=== PATIENT | male | born 2000 | race African-American/Black ===

== ENCOUNTER → 2025-06-05 | Emergency (ER) | payer SELFPAY ==
[~2025-06-05] VITALS: Ht 172.7 cm; Wt 75.0 kg
[2025-06-05 22:24] VITALS: BP 111/87; PULSE 63; O2SAT 100
--- NOTE | 2025-06-05 22:26 | Physician Documentation ---
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 He is unsure when his last tetanus was. He denies any other concerns. Medication Reconciliation Allergies: Uncoded Allergies: PENICILLIN (Allergy, Unknown, hives, 06/05/25) Review of Systems ROS As stated above in the HPI, otherwise all systems are reviewed and negative. Physical Exam Vital Signs: Temperature: 97.8, Heart Rate: 78, Respiratory Rate: 16, BP: 114/66, Pulse Oximetry: 98, Weight: 75.000 Oxygen Flow Rate: 0 Physical Exam General: Alert, no apparent distress. Neck: Full range of motion. Respiratory: Lungs clear, no respiratory distress. Chest: No accessory muscle use. Cardiovascular: Regular rate and rhythm, no murmurs. Gastrointestinal: Soft, nontender, nondistended. Bowels sounds present. Extremities: Normal range of motion, no deformity. Neurologic: Oriented x4. Psychiatric: Normal mood and affect. Skin: Normal color, warm and dry. No edema, no ecchymosis. 3 cm x 0.5 cm laceration exposing subcutaneous tissue left lower dacosta. Procedures Procedure Note Laceration repair to 3x0.5 cm laceration on anterior dacosta. This was accomplished your 1st obtaining informed consent. The skin was then anesthetized with a total of 2 mL of plain lidocaine 1%. The wound was thoroughly irrigated and explored, no foreign bodies found. Subcutaneous tissue was exposed. Wound was closed with five 4.0 Ethilon sutures to good effect. Patient tolerated well. Progress Results/Orders Results/Orders Orders - GEMA PEREZ NP Dressing Orders (06/05/25 22:22) Laceration/I&D Tray Set Up (06/05/25 22:22) Wound Care Orders (06/05/25 22:22) Completed Orders - GEMA PEREZ NP Lidocaine 1% W/Epi 1:200,000 (Xylocaine (06/05/25 22:25) Tetanus/Pertuss/Diph Acell/Pf (Boostrix (06/05/25 22:25) Medications Received in ER Medications (Trade) Dose Ordered Sig/Henrik Route PRN Reason Start Time Stop Time Status Last Admin Dose Admin (Boostrix vaccine syringe) 0.5 ml ONCE ONCE IMVAC 06/05/25 22:25 06/05/25 22:26 DC 06/05/25 22:32 0.5 ML Vital Signs 06/05/25 06/05/25 22:13 22:24 Temp 97.8 97.8 Pulse 78 63 Resp 16 19 B/P (MAP) 114/66 111/87 (95) Pulse Ox 98 100 O2 Flow Rate 0 0 Medical Decision Making Differential Dx:Considerations: Include: Abrasion, Avulsion, Contusion, Laceration, Fracture, Hematoma, Neurovascular injury, Retained foreign body Additional Comments Laceration successfully closed. Tetanus updated. Patient to return in 7-10 days or sooner if signs of infection develop. Departure Time of Disposition: 22:24 Impression: Primary Impression: Laceration Condition: Stable Discharge Instructions: Laceration Care, Adult, [id number] Additional Instructions: Your tetanus was updated. Keep the wound clean, dry, and covered. OK to shower daily and wash with soap and water but do not soak your wound: no swimming or tub baths until it's healed. See your primary care provider for removal of sutures in 7-10 days or return here if unable to get in with primary care. You should also return for signs of infection such as spreading redness, increasing pain, or any other concerns that you're getting worse. Referrals: NO PRIMARY CARE PROVIDER (PCP) Education Educated: Patient Educated regarding: diagnosis, treatment, prognosis, need for follow up Signature Scribe Signature: x Attestation: The note accurately reflects work and decisions made by me.Gema Bourne NP 06/05/25 22:25 GEMA PEREZ NP Jun 05, 2025 22:26
[2025-06-05] MEDS: TETanus/Pertussis (Acell)/Diphther VAC/PF (Tdap-Adult) 0.5ml syringe IMVAC ONE (22:32)
[2025-06-05] MEDS: LIDOcaine 1% W/epiNEPHrine 1:200,000 10ml vial IJ ONE (22:33)
[2025-06-05 22:41] VITALS: RESP 12
[2025-06-05 23:02] VITALS: TEMP 97.8
== END | disposition home or self-care (01) ==
LOC: ER 22:09
DX: S81.812A Laceration without foreign body, left lower leg, initial encounter (principal); X58.XXXA Exposure to other specified factors, initial encounter; Y93.89 Activity, other specified; Y92.89 Other specified places as the place of occurrence of the external cause; Y99.8 Other external cause status
CPT/HCPCS: 12002; 90471; 90715; 99283

== ENCOUNTER 2025-06-14 22:01 | Emergency (ER) | payer SELFPAY ==
[~2025-06-14] VITALS: Ht 172.7 cm; Wt 79.0 kg
[2025-06-14 22:41] VITALS: BP 112/53; PULSE 90; RESP 16; O2SAT 98
--- NOTE | 2025-06-14 23:30 | Physician Documentation ---
History of Present Illness ~ Chief Complaint: Suture Removal Stated Complaint: STITCH REMOVAL Time Seen by MD: 22:53 OK to notify your PCP?: Yes Source: patient, RN/ HPI Patient is seen today with complaints of needing sutures removed from left lower leg. Patient states sutures were placed about eight or nine days ago. Patient states it is healing well and has no other concern or complaint at this time. Tetanus Within 5 Years: No Medication Reconciliation Allergies: Uncoded Allergies: PENICILLIN (Allergy, Unknown, hives, 06/05/25) Review of Systems Constitutional: Denies: chills, fever, weakness Eyes: Denies: pain, blurred vision ENT: Denies: ear pain, nose pain, throat pain, mouth pain Respiratory: Denies: cough, shortness of breath Cardiovascular: Denies: chest pain, palpitations Gastrointestinal: Denies: abdominal pain, nausea, vomiting Genitourinary: Denies: burning, dysuria Male Genitalia: Denies: penile discharge, testicular pain Neurological: Denies: headache, dizziness Musculoskeletal: Denies: pain, swelling Integumentary: Denies: rash, lesions Allergic/Immunologic: Denies: hives, itching Hematologic/Lymphatic: Denies: no symptoms reported Psychiatric: Denies: depression, anxiety Physical Exam Vital Signs: Temperature: 98.1, Source: Temporal, Heart Rate: 90, Respiratory Rate: 16, BP: 112/53, Pulse Oximetry: 98, Weight: 78.950 Oxygen Flow Rate: 0 Physical Exam General: Awake and Alert, no acute distress. HEENT: Conjunctiva pink, Sclera clear, Mucus Membranes moist. Neck: Supple without masses and tenderness. Extremities: No cyanosis,clubbing or edema. Skin: Patient does have sutures in place of well-healed laceration to the anterior dacosta of the left lower leg distally. I do not appreciate any current sign of infection. Progress Results/Orders Results/Orders Vital Signs 06/14/25 22:41 Temp 98.1 Pulse 90 Resp 16 B/P (MAP) 112/53 Pulse Ox 98 O2 Flow Rate 0 Medical Decision Making Findings Patient is seen today with complaints of needing sutures removed from left lower leg. Patient states sutures were placed about eight or nine days ago. Patient states it is healing well and has no other concern or complaint at this time. Patient did have sutures removed today by MASTER Bojorquez. Patient did have Steri-St rips placed after suture removal. Patient will return to ED with any worsening, concerning or changing symptoms. Departure Disposition: 01 HOME / SELF CARE / HOMELESS Impression: Primary Impression: Laceration Additional Impression: Visit for suture removal Condition: Improved Discharge Instructions: Suture Removal, Care After Additional Instructions: Patient did have sutures removed today by MASTER Bojorquez. Patient did have Steri- Strips placed after suture removal. Patient will return to ED with any worsening, concerning or changing symptoms. Referrals: NO PRIMARY CARE PROVIDER (PCP) Signature Scribe Signature: No scribe Attestation: No scribe LOLITA JOY PAC Jun 14, 2025 23:30
[2025-06-14 23:35] VITALS: TEMP 98.1
== END 2025-06-14 23:39 | disposition home or self-care (01) ==
LOC: ER 22:01
DX: S81.812D Laceration without foreign body, left lower leg, subsequent encounter (principal); Z88.0 Allergy status to penicillin; X58.XXXD Exposure to other specified factors, subsequent encounter
CPT/HCPCS: 99281